=== PATIENT | female | born 1950 | race Caucasian/White ===

== ENCOUNTER 2017-07-30 09:55 | Day surgery (SDC) | payer MEDICARE, OTHER ==
[2017-07-20 13:56] VITALS: BP 136/89
[~2017-07-30] VITALS: Ht 172.7 cm; Wt 104.6 kg
[~2017-07-30 09:55] MED LIST: ASCO10004 PO; CEFAZOLIN 1,000 MG ONE; CHOL500015 PO; CIDE300T PO; CYAN25009 PO; DEXAMETHASONE 4 MG/ML, 1ML ONE; FENTANYL PF 250 MCG/5ML ONE; GLYCOPYRROLATE 0.2MG/1ML, 5ML ONE; JUICE PLUS PO; LIDOCAINE 4%, 4 ML SYR/CANN TP ONE; MAGN400T36 PO; MIDAZOLAM 1 MG/ML, 2ML ONE; MULT-516 PO; NEOSTIGMINE 1 MG/ML, 10ML ONE; ONDANSETRON 2MG/ML, 2ML ONE; PROPOFOL 10 MG/ML, 20ML ONE; ROCURONIUM 10 MG/ML ONE; SIMV40TA PO; SUCCINYLCHOLINE 20 MG/ML, 10ML ONE; TURMERIC PO; VITAMIN A PO; VITAMIN E PO
[2017-07-30] MEDS ORDERED: LACTATED RINGERS 1,000 ML IV SCH (10:14)
[2017-07-30] MEDS ORDERED: LIDOCAINE 1%, 2ML SQ PRN (10:30)
[2017-07-30] MEDS ORDERED: OXYcodone 5 MG/5 ML ORAL.SOL UDC PO PRN (11:00)
[2017-07-30] MEDS ORDERED: FENTANYL PF 100 MCG/2ML IV PRN (11:00)
[2017-07-30] MEDS ORDERED: ONDANSETRON 2MG/ML, 2ML IVPush PRN (11:00)
[2017-07-30] MEDS ORDERED: HYDROcodone/APAP 7.5-325MG/15ML UDC PO PRN (11:00)
[2017-07-30] MEDS ORDERED: PROMETHAZINE 25 MG/ML, 1ML IV PRN (11:00)
[2017-07-30] MEDS ORDERED: HYDROmorphone 1 MG/ML, 1ML IV PRN (11:00)
[2017-07-30] MEDS ORDERED: ACETAMINOPHEN 325 MG TABLET PO PRN (11:00)
[2017-07-30] MEDS ORDERED: BUPIVACAINE/PF 0.5% INFIL ONE (11:06)
[2017-07-30] MEDS ORDERED: HYDROmorphone 1 MG/ML, 1ML ONE (11:28)
[2017-07-30 12:07] LABS: IOPTH BASELINE 319 pg/mL; SAMPLE 5 %DROP IOPTH 90 %
[2017-07-30] MEDS ORDERED: LIDOCAINE 4%, 4 ML SYR/CANN TP ONE (12:29)
[2017-07-30] MEDS ORDERED: ACETAMINOPHEN 650 MG/20.3 ML UDC ONE (12:55)
[2017-07-30] MEDS ORDERED: OXYcodone 5 MG/5 ML ORAL.SOL UDC ONE (12:55)
[2017-07-30] MEDS ORDERED: BUPIVACAINE/PF 0.5% ONE (15:25)
[2017-07-30] MEDS ORDERED: EPINEPHRINE 1 MG/ML, 1ML ONE (15:25)
== END 2017-07-30 17:20 ==
LOC: OUT 09:55
PROVIDERS: ATTEND Surgery
DX: E21.0 Primary hyperparathyroidism (principal); E78.00 Pure hypercholesterolemia, unspecified; E83.52 Hypercalcemia; Z90.710 Acquired absence of both cervix and uterus; Z98.890 Other specified postprocedural states; Z72.89 Other problems related to lifestyle; Z87.891 Personal history of nicotine dependence
CPT/HCPCS: 36415; 60500; 83970; 88305; 88331; C1760; J0171; J0330; J0690; J1100; J1170; J2250; J2405; J2704; J2710; J3010; J3490; J7120